=== PATIENT | male | born 1960 | race Caucasian/White ===

== ENCOUNTER 2017-04-20 07:50 | Emergency (ER) | payer OTHER ==
[2017-04-20 07:55] VITALS: BP 157/95
[2017-04-20] MEDS ORDERED: LIDOCAINE 2% 20 ML VIAL. IJ ONE (08:00)
--- NOTE | 2017-04-20 08:06 | PHYS DOC ---
Past History Past Medical History: CAD, High Cholesterol, Hypertension Past Surgical History: No Surgical History Smoking: Non-smoker Alcohol Use: None Drug Use: None Adult General Chief Complaint Chief Complaint: finger laceration HPI HPI Patient is a 57 year old male who presents with complaint of fingertip amputation that took place 15 minutes prior to arrival. Patient states he was working with a table saw and caught the lateral aspect of the middle finger in the saw. Patient states that the saw cut through lateral portion of his fingertip toward the nailbed. Patient has been holding pressure to the area and came immediately to the emergency department for evaluation. Patient denies any other injuries. Patient describes the pain as throbbing currently. Patient is not up-to-date on his tetanus immunization. Review of Systems Review of Systems Constitutional: Denies fever or chills [] Eyes: Denies change in visual acuity, redness, or eye pain [] HENT: Denies nasal congestion or sore throat [] Musculoskeletal: Left middle fingertip injury[] Integument: Denies rash or skin lesions [] Neurologic: Denies headache, focal weakness or sensory changes [] Allergies Allergies No known drug allergies Physical Exam Physical Exam Constitutional: Alert, afebrile, no acute distress. [] HENT: Normocephalic, atraumatic, bilateral external ears normal, oropharynx moist, no oral exudates, nose normal. [] Skin: Warm, dry, no erythema, no rash. [] Extremities: Partial amputation to dorsal lateral aspect of left middle finger, arteriolar bleeding present. [] Neurologic: Alert and oriented X 3, normal motor function, normal sensory function, no focal deficits noted. [] Current Patient Data Vital Signs Vital Signs Date Time Temp Pulse Resp B/P (MAP) Pulse Ox O2 Delivery O2 Flow Rate FiO2 04/20/17 07:55 98.3 70 16 97 Room Air Lab Results None performed EKG EKG Not performed[] Radiology/Procedures Radiology/Procedures Not performed[] Course & Med Decision Making Course & Med Decision Making Pertinent Labs and Imaging studies reviewed. (See chart for details) Patient has a soft tissue avulsion which goes through the patient's lateral nailbed. A total of 2 [id number] sutures were tied at the nailbed to assist with hemostasis. The patient's wound will require simple wound care to allow healing of the avulsion. The patient was given a tetanus booster in the emergency department. The patient was given precautions for return to the emergency department. Patient started on Keflex for prophylaxis. Advised follow- up with primary doctor in 1-2 days for reevaluation and return to emergency department for any worsening symptoms. Patient voiced understanding and in agreement with treatment plan. Dragon Disclaimer Dragon Disclaimer This chart was dictated in whole or in part using Voice Recognition software in a busy, high-work load, and often noisy Emergency Department environment. It may contain unintended and wholly unrecognized errors or omissions. Departure Departure: Impression: Primary Impression: Traumatic amputation of fingertip Disposition: HOME, SELF-CARE Condition: IMPROVED Referrals: NAVJOT MIR MD (PCP) Patient Instructions: Fingertip Injuries and Amputations Additional Instructions: Follow-up with your primary doctor in 2-3 days for reevaluation. Return to the emergency department for any worsening symptoms. Scripts Cephalexin (KEFLEX) 500 Mg Capsule 1 CAP PO BID, #10 CAP Prov: MIGNON ACHARYA MD 04/20/17 Problem Qualifiers Primary Impression: Traumatic amputation of fingertip Encounter type: initial encounter Qualified Codes: S68.129A - Partial traumatic metacarpophalangeal amputation of unspecified finger, initial encounter MIGNON ACHARYA MD Apr 20, 2017 08:06
[2017-04-20] MEDS ORDERED: FLUORESCEIN 1MG EYE STRIP. OD ONE (08:45)
[2017-04-20] MEDS ORDERED: TETRACAINE 0.5% OPHTH SOLUTION 4ML BOTTLE. OD ONE (08:45)
[2017-04-20] MEDS ORDERED: GELATIN SPONGE SIZE 12-7MM SPONGE. ONE ×2 (08:59→09:05)
[2017-04-20] MEDS ORDERED: CEPH-264 PO (09:12)
[2017-04-20] MEDS ORDERED: HYDROcodone/APAP 7.5/325MG 1 TAB TABLET PO ONE (09:15)
[2017-04-20] MEDS ORDERED: CEPHALEXIN 250 MG CAPSULE PO ONE (09:30)
[2017-04-20] MEDS ORDERED: DIPHTH,PERTUSS(ACELL),TET TOX 0.5 ML DISP.SYRIN. VAX IM ONE (09:30)
== END 2017-04-20 09:17 | disposition home or self-care (01) ==
LOC: ER 07:50
DX: S68.123A Partial traumatic metacarpophalangeal amputation of left middle finger, initial encounter (principal); I25.10 Atherosclerotic heart disease of native coronary artery without angina pectoris; E78.00 Pure hypercholesterolemia, unspecified; I10 Essential (primary) hypertension; W31.89XA Contact with other specified machinery, initial encounter; Y93.89 Activity, other specified; Y99.8 Other external cause status; Y92.89 Other specified places as the place of occurrence of the external cause
CPT/HCPCS: 11760; 90471; 90715; 99283-25; 99284-25; 99285-25; J2001

== ENCOUNTER 2017-04-22 15:48 | Emergency (ER) | payer OTHER ==
[~2017-04-22] VITALS: Ht 182.9 cm; Wt 79.4 kg
[~2017-04-22 15:48] MED LIST: CEPH-264 PO
--- NOTE | 2017-04-22 18:14 | PHYS DOC ---
General Chief Complaint: FINGER INJURY Stated Complaint: FOLLOWUP MIDDLE FINGER LACERATION Time Seen by MD: 17:08 Source: patient, old records Exam Limitations: no limitations Problems: History of Present Illness Initial Comments Patient is a 57-year-old male who comes for wound check. Patient states that he cut his left middle finger yesterday with a table saw and it was repaired with supervision the emergency department. He was advised to change the dressing today and was having trouble getting the gauze off of the wound. He's a radial cause further bleeding and is calm for a wound check. He's had some mild swelling in the left middle finger no erythema or discomfort running up the proximal tendons. No fever chills sweats or myalgias no increase in pain no discharge no uncontrolled bleeding. Patient is very anxious Onset: yesterday Severity: moderate Pain/Injury Location: left 3rd finger Method of Injury: incised Modifying Factors: worse with jarring, worse with movement Allergies: Coded Allergies: No Known Drug Allergies (Unverified , 04/20/17) Past Medical History Medical History: no pertinent history Surgical History: noncontributory Social History Alcohol: none Drugs: none Review of Systems Constitutional: denies chills, denies diaphoresis, denies fever Respiratory: denies cough, denies shortness of breath Cardiovascular: denies chest pain, denies palpitations Gastrointestinal: denies abdominal pain, denies nausea, denies vomiting Musculoskeletal: see HPI Skin: see HPI Psychiatric/Neurological: see HPI Physical Exam General Appearance: WD/WN, no apparent distress HEENT: PERRL/EOMI, normal ENT inspection Neck: non-tender, supple Cardiovascular/Respiratory: normal peripheral pulses, no respiratory distress Hand: soft tissue tenderness (left third finger laceration appears to be healing well no purulence no erythema or warmth. Wound edges are approximated) Neurologic/Tendon: normal sensation, normal motor functions, normal tendon functions, responds to pain Psychiatric: alert, oriented x 3 Skin: warm/dry (see above) Departure Time of Disposition: 18:13 Disposition: 01 HOME, SELF-CARE Diagnosis: wound check Condition: GOOD Patient Instructions: Sutured Wound Care, [id number] Additional Instructions: Keep wound covered with sterile dressing until completely healed. Wash wound twice daily with soap and warm water, blot dry. Change dressing after each wash. Allow the wound to air dry 1 hour daily. Continue current medications. Follow-up at [place] Friday for recheck as scheduled. Return to ED with new or changing symptoms. GARETH CALHOUN DO Apr 22, 2017 18:14
[2017-04-22 18:30] VITALS: BP 126/77
== END 2017-04-22 18:30 | disposition home or self-care (01) ==
LOC: ER 15:48
DX: S61.213D Laceration without foreign body of left middle finger without damage to nail, subsequent encounter (principal); W27.8XXD Contact with other nonpowered hand tool, subsequent encounter
CPT/HCPCS: 99283

== ENCOUNTER → 2020-06-06 | Outpatient (CLI) | payer OTHER ==
--- NOTE | 2020-06-06 16:02 | RAD ---
Right lower extremity venous duplex study 06/06/2020 4:00 PM Clinical History: Reason: RT LEG/FOOT PAIN / Spl. Instructions: / History: Technique: Using a combination of real time ultrasound imaging and color-flow and pulse Doppler imagi ng techniques, including spectral analysis, graded compression and augmentation, duplex evaluation of the deep venous system of the right lower extremity was performed. Multiple images were obtained. Findings: There is no sonographic evidence of deep venous thrombosis involving the visualized deep ve nous structures of the right lower extremity Impression: No evidence of deep venous thrombosis involving the right lower extremity Electronically signed by: Gurwinder Roblero MD (06/06/2020 4:00 PM) [id number]
== END ==
LOC: US 11:20
PROVIDERS: ATTEND Clinical Nurse Specialist Family Health
DX: M79.604 Pain in right leg (principal)
CPT/HCPCS: 93971

== ENCOUNTER 2021-01-14 15:13 | Emergency (ER) | payer OTHER ==
[~2021-01-14] VITALS: Ht 182.9 cm; Wt 81.0 kg
[2021-01-14 15:20] VITALS: BP 141/95
--- NOTE | 2021-01-14 16:14 | PHYS DOC ---
Past History Past Medical History: CAD, High Cholesterol, Hypertension (OJ HOLLINS APRN) Past Surgical History: No Surgical History (OJ HOLLINS APRN) Smoking: Non-smoker Alcohol Use: None Drug Use: None (OJ HOLLINS APRN) General Adult EDM: Chief Complaint: LACERATION/AVULSION HPI: HPI: Patient is a 60-year-old male presents with laceration to right, index finger. 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 Bleeding is controlled. Denies blood thinners. (OJ HOLLINS APRN) Review of Systems: Review of Systems: Constitutional: Denies fever or chills Eyes: Denies change in visual acuity HENT: Denies nasal congestion or sore throat Respiratory: Denies cough or shortness of breath Cardiovascular: Denies chest pain or edema GI: Denies abdominal pain, nausea, vomiting, bloody stools or diarrhea : Denies dysuria Musculoskeletal: Denies back pain or joint pain Integument: Half a centimeter laceration to right, index and Neurologic: Denies headache, focal weakness or sensory changes Endocrine: Denies polyuria or polydipsia Lymphatic: Denies swollen glands Psychiatric: Denies depression or anxiety (OJ HOLLINS APRN) Allergies: Allergies: Allergies Coded Allergies Type Severity Reaction Last Updated Verified No Known Drug Allergies 04/20/17 No (OJ HOLLINS APRN) Physical Exam: PE: Constitutional: Well developed, well nourished, no acute distress, non-toxic appearance. [] HENT: Normocephalic, atraumatic, bilateral external ears normal, oropharynx moist, no oral exudates, nose normal. [] Eyes: PERRLA, EOMI, conjunctiva normal, no discharge. [] Neck: Normal range of motion, no tenderness, supple, no stridor. [] Cardiovascular:Heart rate regular rhythm, no murmur [] Lungs & Thorax: Bilateral breath sounds clear to auscultation [] Abdomen: Bowel sounds normal, soft, no tenderness, no masses, no pulsatile masses. [] Skin: Half a centimeter laceration to right, index finger Back: No tenderness, no CVA tenderness. [] Extremities: No tenderness, no cyanosis, no clubbing, ROM intact, no edema. [] Neurologic: Alert and oriented X 3, normal motor function, normal sensory function, no focal deficits noted. [] Psychologic: Affect normal, judgement normal, mood normal. [] (OJ HOLLINS APRN) EKG: EKG: [] (OJ HOLLINS APRN) Radiology/Procedures: Radiology/Procedures: [] (OJ HOLLINS APRN) Heart Score: C/O Chest Pain: No Risk Factors: Risk Factors: DM, Current or recent (<one month) smoker, HTN, HLP, family history of CAD, obesity. Risk Scores: Score 0 - 3: 2.5% MACE over next 6 weeks - Discharge Home Score 4 - 6: 20.3% MACE over next 6 weeks - Admit for Clinical Observation Score 7 - 10: 72.7% MACE over next 6 weeks - Early Invasive Strategies (OJ HOLLINS APRN) Course & Med Decision Making: Course & Med Decision Making Pertinent Labs and Imaging studies reviewed. (See chart for details) [] 60-year-old male who presents with laceration to right, index finger. Patient states he cut his finger on a fast food sales assistant. Bleeding is controlled. Denies blood thinners. Denies needing anything for pain at this time Patient states his tetanus shot is up-to-date. Steri-Strip applied. Patient instructed to keep wound clean and dry. Discussed signs of infection. Patient is appreciative and okay with discharge plan. (OJ HOLLINS APRN) Course & Med Decision Making Did not see or evaluate patient. 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 (OJ HOLLINS APRN) Departure Departure: Impression: Primary Impression: Laceration Disposition: HOME / SELF CARE / HOMELESS Condition: STABLE Referrals: NAVJOT MIR MD (PCP) Patient Instructions: Laceration Care, Adult Additional Instructions: You are seen the emergency room for a laceration to your right, index finger. You stated that your tetanus was up-to-date. Steri-Strip was applied to wound. Please keep clean and dry. Return to emergency room if you have worsening symptoms or concerns. EMERGENCY DEPARTMENT GENERAL DISCHARGE INSTRUCTIONS Thank you for coming to [facility] (ED) today and trusting us with you care. We trust that you had a positivie experience in our Emergency Department. If you wish to speak to the department management, you may call the director at [phone]. YOUR FOLLOW UP INSTRUCTIONS ARE FOLLOWS: 1. Do you have a private Doctor? If you do not have a private doctor, please ask for a resource list of physicians or clinics that may be able to assist you with follow up care. 2. The Emergency Physician has interpreted your x-rays. The X-Ray specialist will also review them. If there is a change in the findings, you will be notified in 48 hours when at all possible. 3. A lab test or culture has been done, your results will be reviewed and you will be notified if you need a change in treatment. ADDITIONAL INSTRUCTIONS AND INFORMATION: 1. Your care today has been supervised by a physician who is specially trained in emergency care. Many problems require more than one evaluation for a complete diagnosis and treatment. We recommend that you schedule your follow up appointment as recommended to ensure complete treatment of you illness or injury. If you are unable to obtain follow up care and continue to have a problem, or if your condition worsens, we recommend that you return to the ED. 2. We are not able to safely determine your condition over the phone nor are we able to give sound medical advice over the phone. For these safety reasons, if you call for medical advice we will ask you to come to the ED for further evaluation. 3. If you have any questions regarding these discharge instructions please call the ED at [phone]. SAFETY INFORMATION: In the interest of safety, wellness, and injury prevention; we encourage you to wear your sealbelt, if you smoke; quite smoking, and we encourage family to use a protective helmet for bicycling and other sporting events that present an increased risk for head injury. IF YOUR SYMPTOMS WORSEN OR NEW SYMPTOMS DEVELOP, OR YOU HAVE CONCERNS ABOUT YOUR CONDITION; OR IF YOUR CONDITION WORSENS WHILE YOU ARE WAITING FOR YOUR FOLLOW UP APPOINTMENT; EITHER CONTACT YOUR PRIMARY CARE DOCTOR, THE PHYSICIAN WHOSE NAME AND NUMBER YOU WERE GIVEN, OR RETURN TO THE ED IMMEDIATELY. OJ HOLLINS APRN Jan 14, 2021 16:14 BOB CONTEH MD Jan 14, 2021 17:34
== END 2021-01-14 16:08 | disposition home or self-care (01) ==
LOC: ER 15:13
DX: S61.210A Laceration without foreign body of right index finger without damage to nail, initial encounter (principal); I25.10 Atherosclerotic heart disease of native coronary artery without angina pectoris; E78.00 Pure hypercholesterolemia, unspecified; I10 Essential (primary) hypertension; W26.8XXA Contact with other sharp object(s), not elsewhere classified, initial encounter; Y93.89 Activity, other specified; Y92.89 Other specified places as the place of occurrence of the external cause; Y99.8 Other external cause status
CPT/HCPCS: 99282